=== PATIENT | female | born 1985 | race Caucasian/White ===

== ENCOUNTER 2018-02-03 13:36 | Observation (INO) ==
--- NOTE | 2018-02-03 14:52 | Anesthesia Evaluation PreOp ---
Date of Encounter: 02/03/18 Time of Encounter: 14:50 - Past History Planned Operation: Left elbow I and d Cardiac History: HTN Pulmonary History: Asthma SHOP SUPERINTENDENT History: Other (anxiety, depression, fibromyalgia) Other Medical History: Other (BMI 41) Anesthesia History: No Prior Anesthetic Complications, Past Anesthesia ([place], T and A, tubal,L hand I and D and tendon repair) Test: Negative (02/03/18) Alcohol Use: none Drug use: none Medications and Allergies Amitriptyline HCl 75 mg PO DAILY 12/24/17 [History] Furosemide [Lasix] 40 mg PO DAILY 12/24/17 [History] Gabapentin [Neurontin] 800 mg PO TID 12/24/17 [History] Lisinopril [Zestril] 20 mg PO DAILY 12/24/17 [History] Tizanidine HCl [Zanaflex] 4 mg PO TID PRN 12/24/17 [History] Buprenorphine HCl/Naloxone HCl [Suboxone 8 mg-2 mg Sl Film] 1 each SL BID [History] Buspirone HCl [Buspar] 7.5 - 15 mg PO 3-4XD PRN 02/03/18 [History] Quetiapine Fumarate [Seroquel] 50 mg PO DAILY 02/03/18 [History] SUMAtriptan succinate [Imitrex] 50 mg PO Q2H PRN MDD 4 per 24 hours 02/03/18 [ History] 3 Allergy/AdvReac Type Severity Reaction Status Date / Time No Known Allergies Allergy Verified 02/03/18 13:59 - Meds/Allergy Pre-op Review Medications Reviewed: Yes Allergies Reviewed: Yes Beta Blockers on Current Med List: No Anesthesia Results - Labs Laboratory Tests 02/02/18 02/02/18 13:40 13:40 WBC 11.6 H RBC 4.27 Hct 35.3 Plt Count 247 Sodium 135 L Potassium 3.6 Chloride 100 Carbon Dioxide 28 BUN 10 Creatinine 0.83 Glucose 107 H Anesthesia Exam O2 Sat Height 1.65 m Weight 112.945 kg - HEENT Pupil (Motor): Pupils equal, EOMI Mallampati: II Teeth: Normal Oral Opening: Greater than 3 - SHOP SUPERINTENDENT LOC: Oriented SHOP SUPERINTENDENT Motor: Normal RUE, Normal LUE, Normal RLE, Normal LLE, Normal Face [employer] SUPERINTENDENT Sensory: Normal: RUE, LUE, RLE, LLE, Face - Cardiac Rhythm: Regular - Pulmonary Breath Sounds: bilateral Clear Respiratory Effort: Symmetrical Anesthesia Assess/Plan ASA Score: 3 (HTN, asthma, anxiety, depression, BMI 41) Modified Ltaisha Scale for Level of Consciousness: Cooperative, oriented, and tranquil Anesthetic Plan: General Monitoring Plan: Standard Monitors Recovery Plan: PACU
[2018-02-03] MEDS ORDERED: Acetaminophen IV 1,000 MG/100 ML INFUS..BTL ONE (14:58)
[2018-02-03] MEDS ORDERED: *HR* Propofol 200 MG/20 ML VIAL IVP ONE (15:11)
[2018-02-03] MEDS ORDERED: *HR* Midazolam HCl 2 MG/2 ML VIAL ONE (15:11)
[2018-02-03] MEDS ORDERED: *HR* FentaNYL (PF) 100 MCG/2 ML VIAL ONE ×2 (15:11→16:32)
[2018-02-03] MEDS ORDERED: Lidocaine -MPF 2% 2 ML VIAL ONE (15:12)
[2018-02-03] MEDS ORDERED: Lidocaine -MPF 1% 5 ML AMPUL ONE (15:20)
[2018-02-03] MEDS ORDERED: Dexamethasone 4 MG/ML VIAL IVP ONE (15:22)
[2018-02-03] MEDS ORDERED: *HR* Promethazine 25 MG/ML VIAL IVP PRN (15:22)
[2018-02-03] MEDS ORDERED: Ondansetron 4 MG/2 ML VIAL IVP ONE (15:22)
[2018-02-03] MEDS ORDERED: *HR* HYDROmorphone (PF) 1 MG/ML SYRINGE IVP PRN (15:22)
[2018-02-03] MEDS ORDERED: *HR* OxyCODONE Immed Rel 5 MG TABLET PO PRN (15:22)
--- NOTE | 2018-02-03 15:55 | History & Physical Report ---
Date of Encounter: 02/03/18 Time of Encounter: 15:54 24 Hour HP Update - Instructions Instructions: If the History and Physical is less than 30 days old and was completed prior to A.M. admission and or procedure and has NOT been updated on calendar day of procedure please complete this update prior to performing procedure. - Update Patient reports changes in Medical Condition: No Changes in examination, assessment, or condition: No Changes in Medication: No Preop tests/diagnostics Reviewed: Yes Surgery Remains Indicated: Yes Consent for Planned Operative Procedure(s) Verified: Yes Review of Patient reveals the following changes:: Worsening cellulitis - Pre-Operative Checklist Preoperative Checklist Indicated: Yes Prophylactic Antibiotic Ordered: Yes Is VTE Prophylaxis Indicated?: Yes
[2018-02-03] MEDS ORDERED: Ketamine *HR* 500 MG/10 ML MDV ONE (16:25)
[2018-02-03] MEDS ORDERED: *HR* HYDROmorphone 2 MG/ML SYRINGE ONE (16:26)
[2018-02-03] MEDS ORDERED: *HR* Magnesium Sulfate 1 GM/2 ML VIAL ONE (16:28)
[2018-02-03] MEDS ORDERED: KETAMINE HCL 50 MG/ML SYRINGE IV ONE (16:41)
[2018-02-03] MEDS ORDERED: Ketorolac 30 MG/ML VIAL ONE (16:43)
--- NOTE | 2018-02-03 17:52 | Anesthesia Evaluation Post Op ---
Date of Encounter: 02/03/18 Time of Encounter: 17:51 - Vital Signs Vital Signs: Vital Signs Temperature 98.8 F 02/03/18 17:00 Pulse Rate 108 02/03/18 17:00 Respiratory Rate 14 02/03/18 17:00 Blood Pressure 152/85 02/03/18 17:00 O2 Sat by Pulse Oximetry 99 02/03/18 17:00 Temperature 98.2 F 02/03/18 17:40 Pulse Rate 75 02/03/18 17:40 Respiratory Rate 18 02/03/18 17:40 Blood Pressure 156/85 02/03/18 17:40 O2 Sat by Pulse Oximetry 98 02/03/18 17:40 - Lungs Lungs: Clear Ascult./Percussion - Airway Airway: Non-obstructed - Cardiovascular Regular Rate - Mental Status Mental Status: Alert & Oriented, Answers Appropriately - Pain Pain Scale: 0 - Nausea Vomiting Nausea Vomiting: Not Present - Hydration Hydration: Tolerates oral liquids - Discharge PostOp Status: Transfer Patient to floor
[2018-02-03] MEDS ORDERED: tiZANidine 4 MG TABLET PO PRN (18:24)
[2018-02-03] MEDS ORDERED: Vancomycin 1 EACH in 0.9 % Sodium Chloride 250 ML IVPB SCH (18:24)
[2018-02-03] MEDS: *HR* OxyCODONE Immed Rel 5 MG TABLET PO PRN (21:37)
[2018-02-03] MEDS: D5% in 0.45% NACL w KCl 20 MEQ/1,000 ML MLS IVC SCH (21:39)
[2018-02-03] MEDS: (Buprenorphine Hcl/Naloxone Hcl [Suboxone 8 Mg-2 Mg S SL SCH (21:39)
[2018-02-03 21:46] LABS: BUN/Creatinine Ratio 13 (6-26); Blood Urea Nitrogen 11 mg/dL (6-20); eGFR For Non-African Americans > 60 (> 60)
[2018-02-04 02:50] LABS: Basophils % 0.2 %; Eosinophils # 0.3 K/mcL (0.0-0.6); Eosinophils % 3.7 %; Hematocrit 36.6 % (35.3-44.9); Immature Granulocytes % 0.4 % (0-4); Lymphocytes # 2.2 K/mcL (0.6-4.6); Lymphocytes % 25.2 %; Mean Corpuscular HGB Conc 32.8 g/dL (31.6-35.5); Mean Corpuscular Hemoglobin 27.6 pg (28.0-33.3); Mean Corpuscular Volume 84.3 fL (83.0-100.0); Mean Platelet Volume 10.1 fL (9.4-12.4); Monocytes # 0.7 K/mcL (0.0-1.3); Monocytes % 7.9 %; Neutrophils # 5.6 K/mcL (1.6-8.9); Platelet Count 233 K/mcL (140-400); Red Blood Count 4.34 M/mcL (3.82-4.97); Red Cell Distribution Width 13.5 % (11.5-14.5); Segmented Neutrophils % 62.6 %
[2018-02-04 03:12] LABS: BUN/Creatinine Ratio 15 (6-26); Blood Urea Nitrogen 12 mg/dL (6-20); C-Reactive Protein 146 mg/L (Less than 10); Calcium 8.6 mg/dL (8.6-10.3); Carbon Dioxide 26 mEq/L (23-29); Chloride 103 mEq/L (98-107); Glucose 104 mg/dL (70-105); Osmolality,Calculated 280 (280-300); Potassium 3.5 mEq/L (3.5-5.1); Sodium 135 mEq/L (136-145); eGFR For Non-African Americans > 60 (> 60)
[2018-02-04] MEDS: *HR* OxyCODONE Immed Rel 5 MG TABLET PO PRN ×5 (03:28→22:55)
--- NOTE | 2018-02-04 07:53 | Operative Note ---
Date of procedure: 02/03/18 Pre-op diagnosis: Left elbow antecubital fossa abscess Post-op diagnosis: same Procedure: Left elbow incision and drainage of deep elbow abscess Anesthesia: EULALIAA Surgeon: John Henry Was there an finance assistant present: No Estimated blood loss (cc): 20 Tourniquet Time (Minutes): 0 Specimen: Sent to microbiology Condition: stable Disposition: PACU Procedure in Detail: The patient was brought into the operating room and placed on the OR table in supine position. She underwent general anesthesia. A tourniquet was placed on her left arm close to the axilla, and the left upper extremity was prepped and draped in usual sterile fashion. A timeout was performed. A 6 cm lateral curvilinear incision was made centered over the swollen fluctuant area of the elbow in the antecubital fossa. The incision went from proximal lateral curving at the elbow flexion crease and going medially/distally , going The subcutaneous tissues plane dissected, and and on deeper dissection, a pocket of pus was encountered. Cultures for aerobic and anaerobic were taken and sent off to microbiology. Retractors were used to get good exposure, the pocket was lateral and deep to the biceps. The muscle tissue appeared to be in good condition. The deep subcutaneous tissue was dissected off the muscle fascia proximate distally around the elbow. The purulent fluid symptoms are more localized within the cubital fossa. Also noted the basilic vein was thrombosed. The full-thickness skin and subcutaneous tissue was closed with 3-0 nylon vertical mattress and simple sutures. A 1 cm opening was left, and this was filled with half-inch iodoform packing. Sterile dressings applied. The patient was extubated and taken to the recovery room.
[2018-02-04] MEDS: Furosemide 40 MG TABLET PO SCH (09:01)
[2018-02-04] MEDS: Lisinopril 20 MG TABLET PO SCH (09:01)
[2018-02-04] MEDS: (Buprenorphine Hcl/Naloxone Hcl [Suboxone 8 Mg-2 Mg S SL SCH ×2 (09:02→19:45)
[2018-02-04] MEDS: D5% in 0.45% NACL w KCl 20 MEQ/1,000 ML MLS IVC SCH ×2 (09:07→21:54)
--- NOTE | 2018-02-04 19:02 | Orthopedics Progress Note ---
Date of Encounter: 02/04/18 Time of Encounter: 12:45 - Assessment and Plan (1) Abscess of left arm Current Visit: Yes Status: Acute POD#1 s/p left elbow antecubital fossa I&D 02/03/19 Packing removed today. continues to have purulent drainage. Begin local wound care washing with soap/water 3xdaily and keep covered with dry gauze dressings. Continue ROM as tolerated. Ice as needed to elbow. Labs: WBC 8.9, ESR 74, CRP 146. still elevated Continue IV vancomycin one more night. She started bactrim ds script day before surgery. she will restart this upon Dc home Plan for DC home tomorrow if show improvement. pain rx for discharge given to nurse today. will follow up with Mile Velásquez PA-C in [facility] office on 02/11/18. (2) Obesity, morbid, BMI 40.0-49.9 Current Visit: No Status: Chronic (3) Hypertension Current Visit: No Status: Chronic Qualifiers: Hypertension type: unspecified Qualified Code(s): I10 - Essential (primary ) hypertension Subjective Principal diagnosis: POD#1 s/p left elbow I&D 02/03/18 Interval history: Patient feeling well today although continues to have burning pain to elbow. Denies any numbness or tingling to extremities. No events overnight Objective Vital signs: Vital Signs Temp Pulse Resp BP Pulse Ox 02/04/18 18:34 98.3 F 95 16 117/74 99 02/04/18 17:48 90 02/04/18 16:29 98.7 F 126 18 121/73 96 02/04/18 11:18 98.3 F 87 18 119/71 98 02/04/18 09:08 99 02/04/18 06:50 99.0 F 84 18 139/78 99 02/04/18 03:30 98.1 F 96 16 141/84 100 02/03/18 23:21 98.0 F 86 18 134/73 97 02/03/18 21:40 98.4 F 85 16 122/77 97 02/03/18 19:29 98.4 F 78 16 133/75 98 Intake and Output 02/04/18 02/04/18 02/04/18 07:59 15:59 23:59 Intake Total 970 / 970 Balance 970 / 970 Intake: IV Fluids 250 / 250 Vancocin 1,250 MG In 0.9 % 250 / 250 Sodium Chloride 250 ML @ 166.67 mls/hr IVPB Q12H [facility] Rx#: [id number] Oral 720 / 720 Other: Meal Lunch Percent of Meal Consumed 90% # Voids 1 Incision: draining (Packing removed, small amount purulent drainage expressed with gentle palpation around open incision. continued surrounding erythema and swelling. restricted ROM of elbow, full ROM wrist and hand. brisk cap refill, grossly NV intact.) - Labs CBC & BMP: 02/04/18 01:57 02/04/18 01:57 Labs: Abnormal lab results MCH 27.6 pg (28.0-33.3) L 02/04/18 01:57 ESR 74 mm/hr (0-15) H 02/04/18 01:57 Sodium 135 mEq/L (136-145) L 02/04/18 01:57 C-Reactive Protein 146 mg/L (Less than 10) H 02/04/18 01:57 - VTE Documentation of Mechanical Device: Intermittent pneumatic compression device Consult Discharge Plan - Plan Referrals: NONE,PCP [Primary Care Provider] -
[2018-02-04] MEDS: SUMAtriptan succinate 50 MG TABLET PO PRN (22:57)
[2018-02-05] MEDS: *HR* OxyCODONE Immed Rel 5 MG TABLET PO PRN ×2 (04:02→08:39)
[2018-02-05 07:04] VITALS: BP 121/75
[2018-02-05] MEDS: Furosemide 40 MG TABLET PO SCH (08:39)
[2018-02-05] MEDS: Lisinopril 20 MG TABLET PO SCH (08:39)
[2018-02-05] MEDS: SUMAtriptan succinate 50 MG TABLET PO PRN (08:40)
[2018-02-05] MEDS: (Buprenorphine Hcl/Naloxone Hcl [Suboxone 8 Mg-2 Mg S SL SCH (08:49)
--- NOTE | 2018-02-05 10:09 | Orthopedics Progress Note ---
Date of Encounter: 02/05/18 Time of Encounter: 10:07 Subjective Principal diagnosis: POD#1 s/p left elbow I&D 02/03/18 Interval history: S: Significant improvement of her symptoms overnight Moderate expected pain to the left anterior elbow region O: Afebrile on the vital signs are stable Left elbow wound has improving erythema and swelling Minimal wound drainage at this point The patient can actively flex and extend all digits, extend the thumb, cross the index and long fingers, make an okay sign, and oppose the thumb. The fingertips are all grossly sensate and well-perfused, and the radial artery pulse is 2+. A: Post I&D of the left elbow P: Resume postoperative care Motion exercises to reduce the risk of stiffness Daily dressing changes with local wound care Orthopedically stable for discharge on Bactrim DS Follow-up with Dr. Henry in the office early next week for a wound evaluation Objective Vital signs: Vital Signs Temp Pulse Resp BP Pulse Ox 02/05/18 08:44 100 02/05/18 07:01 98.5 F 76 14 121/75 100 02/04/18 22:23 98.6 F 95 16 121/64 100 02/04/18 18:34 98.3 F 95 16 117/74 99 02/04/18 17:48 90 02/04/18 16:29 98.7 F 126 18 121/73 96 02/04/18 11:18 98.3 F 87 18 119/71 98 Intake and Output 02/04/18 02/05/18 02/05/18 23:59 07:59 15:59 Intake Total 250 / 250 250 / 250 Output Total 50 / 50 Balance 250 / 250 200 / 200 Intake: IV Fluids 250 / 250 250 / 250 Vancocin 1,250 MG In 0.9 % 250 / 250 250 / 250 Sodium Chloride 250 ML @ 166.67 mls/hr IVPB Q12H [facility] Rx#: [id number] Output: Urine 50 / 50 Other: Stool Size Smear Stool Color Black # Voids 3 - Labs CBC & BMP: 02/04/18 01:57 02/04/18 01:57 Labs: Abnormal lab results MCH 27.6 pg (28.0-33.3) L 02/04/18 01:57 ESR 74 mm/hr (0-15) H 02/04/18 01:57 Sodium 135 mEq/L (136-145) L 02/04/18 01:57 C-Reactive Protein 146 mg/L (Less than 10) H 02/04/18 01:57 Vancomycin Trough 13 mcg/mL (5-10) H 02/05/18 03:57 - VTE Documentation of Mechanical Device: Intermittent pneumatic compression device Consult Discharge Plan - Plan Referrals: NONE,PCP [Primary Care Provider] -
[2018-02-05] MEDS ORDERED: Aminoglycoside Consult 1 EACH MC ONE (12:21)
== END 2018-02-05 12:22 | disposition home or self-care (01) ==
LOC: SAMDAY 13:36 → 3NENU 13:36
PROVIDERS: ADMIT Orthopaedic Surgery Hand Surgery; ATTEND Orthopaedic Surgery Hand Surgery